=== PATIENT | female | born 1960 | race African-American/Black ===

== ENCOUNTER 2016-10-04 20:04 | Emergency (ER) | payer OTHER ==
[~2016-10-04] VITALS: Ht 160 cm; Wt 122.5 kg
[~2016-10-04 20:04] MED LIST: ADULT ONE DAI200 MCG PO; ALLOPURINOL 30300 M1 PO; APAP650 PO; CLARITIN10 MG PO; COLCHICINE 0.60.6 M1 PO; DOXEPIN 50MG CA50 M1 PO; FLEXERIL PO; HYDROCHLOROTHIA25 M1 PO; IBUPROFEN 600600 M1 PO; INDOMETHACIN 2525 MG PO; LISINOPRIL PO; NAPROXEN 500MG500 MG PO; NORVASC10 MG PO; OSTEO BI-FLEX1 EAC1 PO; PRINIVIL40 MG PO; ULTRAM 50MG TAB50 MG PO
[2016-10-04 20:06] VITALS: BP 172/73
[2016-10-04] MEDS ORDERED: FLUTICASONE PRO16 GM NS (20:37)
[2016-10-04] MEDS ORDERED: NAPROSYN500 MG PO (21:09)
== END 2016-10-04 21:21 | disposition home or self-care (01) ==
LOC: ER 20:04
DX: S86.011A Strain of right Achilles tendon, initial encounter (principal); M77.31 Calcaneal spur, right foot; I10 Essential (primary) hypertension; F41.9 Anxiety disorder, unspecified; M19.90 Unspecified osteoarthritis, unspecified site; Z90.711 Acquired absence of uterus with remaining cervical stump; Z88.0 Allergy status to penicillin; Z88.2 Allergy status to sulfonamides; Z87.891 Personal history of nicotine dependence; W18.39XA Other fall on same level, initial encounter; Y93.89 Activity, other specified; Y92.89 Other specified places as the place of occurrence of the external cause; Y99.8 Other external cause status

== ENCOUNTER 2017-04-28 21:46 | Emergency (ER) | payer OTHER ==
[~2017-04-28] VITALS: Ht 160 cm; Wt 122.5 kg
[~2017-04-28 21:46] MED LIST changes: +FLUTICASONE PRO16 GM NS; +NAPROSYN500 MG PO
[2017-04-28] MEDS ORDERED: NAPROSYN500 MG PO (22:22)
== END 2017-04-28 22:51 | disposition home or self-care (01) ==
LOC: ER 21:46
DX: H93.13 Tinnitus, bilateral (principal); I10 Essential (primary) hypertension; F41.9 Anxiety disorder, unspecified; M19.90 Unspecified osteoarthritis, unspecified site; Z90.710 Acquired absence of both cervix and uterus; Z88.0 Allergy status to penicillin; Z88.2 Allergy status to sulfonamides; Z87.891 Personal history of nicotine dependence